=== PATIENT | male | born 1965 ===

== ENCOUNTER 2023-03-04 06:35 | Day surgery (SDC) | payer OTHER ==
[~2023-03-04] VITALS: Ht 177.8 cm; Wt 102.1 kg
[~2023-03-04 06:35] MED LIST: NORVAS PO; [UNRECOGNIZED DRUG - OTHER] PO
[2023-03-04] MEDS ORDERED: PERCOCET 5-3251 EACH PO (16:42)
== END 2023-03-04 18:00 | disposition home or self-care (01) ==
LOC: CIR.AMB 06:35
PROVIDERS: ATTEND Surgery
DX: N52.01 Erectile dysfunction due to arterial insufficiency (principal); N52.9 Male erectile dysfunction, unspecified; Z20.822 Contact with and (suspected) exposure to COVID-19; Z88.6 Allergy status to analgesic agent; I10 Essential (primary) hypertension; E78.5 Hyperlipidemia, unspecified
CPT/HCPCS: 54405; C1813